=== PATIENT | female | born 1990 | race Caucasian/White ===

== ENCOUNTER 2016-07-07 15:59 | Emergency (ER) | payer MEDICAID ==
[~2016-07-07] VITALS: Ht 154.9 cm; Wt 55.3 kg
[2016-07-07 17:48] VITALS: BP 125/79
== END 2016-07-07 17:48 | disposition home or self-care (01) ==
LOC: ED 15:59
DX: K29.00 Acute gastritis without bleeding (principal)
CPT/HCPCS: Q0162

== ENCOUNTER 2016-07-17 21:47 | Inpatient (IN) | payer MEDICAID ==
[~2016-07-17] VITALS: Ht 157.5 cm; Wt 57.3 kg
[2016-07-17 23:46] LABS: BASOPHIL % 0.1 % (0-2); PLATELET COUNT 298 x10^3mcL (130-400); RED CELL DISTRIBUTION WIDTH 12.1 % (11.5-14.5)
[2016-07-17 23:56] LABS: CALCIUM 8.8 mg/dL (8.5-10.1); CARBON DIOXIDE 27.4 mmol/L (21-32); CHLORIDE SERUM 103 mmol/L (98-107); CREATININE SERUM 0.9 mg/dL (0.6-1.0); GFR1 > 60 mL/min; GLUCOSE SERUM 140 mg/dL (74-106); POTASSIUM SERUM 3.9 mmol/L (3.5-5.1); SODIUM SERUM 140 mmol/L (136-145)
[2016-07-18] VITALS (7 sets, daily range): BP systolic 83–91; BP diastolic 49–59
[2016-07-18] LABS: ALKALINE PHOSPHATASE 72 U/L (46-116); ALT/SGPT 25 U/L (14-59); AST/SGOT 15 U/L (15-37); BILIRUBIN TOTAL 0.3 mg/dL (0.20-1.00); LIPASE 146 IU/L (73-393); TOTAL PROTEIN, SERUM 7.8 g/dL (6.4-8.2)
[2016-07-18 03:21] LABS: T3 TOTAL 0.92 ng/mL
[2016-07-18 03:50] LABS: CHOLESTEROL/HDL RATIO 2.9
[2016-07-18 03:52] LABS: FREE T4 1.15 ng/dL (0.76-1.46); FREE THYROXINE INDEX 2.8 ug/dL (1.4-4.5); T4(THYROXINE) 8.1 ug/dL (4.7-13.3)
[2016-07-18 04:27] LABS: UA SPECIFIC GRAVITY >=1.030 (1.005-1.035); microscopic required? YES; urine erythrocyte NEGATIVE (NEGATIVE)
[2016-07-18 04:39] LABS: AMPHETAMINE QUAL UR NONE DETECTED (NEG <=1000)
[2016-07-18 07:27] LABS: CALCIUM 7.8 mg/dL (8.5-10.1); CARBON DIOXIDE 28.8 mmol/L (21-32); CHLORIDE SERUM 107 mmol/L (98-107); CREATININE SERUM 0.6 mg/dL (0.6-1.0); GFR1 > 60 mL/min; GLUCOSE SERUM 107 mg/dL (74-106); PHOSPHOROUS 3.7 mg/dL (2.5-4.9); POTASSIUM SERUM 3.9 mmol/L (3.5-5.1); SODIUM SERUM 140 mmol/L (136-145)
[2016-07-18 12:52] LABS: BASOPHIL % 0.4 % (0-2); PLATELET COUNT 231 x10^3mcL (130-400); RED CELL DISTRIBUTION WIDTH 12.2 % (11.5-14.5)
[2016-07-18] MEDS ORDERED: ONDANSETRON4 M3 PO (14:33)
[2016-07-19 05:20] VITALS: BP 88/47
[2016-07-19 06:51] LABS: BASOPHIL % 0.4 % (0-2); PLATELET COUNT 244 x10^3mcL (130-400); RED CELL DISTRIBUTION WIDTH 12.4 % (11.5-14.5)
[2016-07-19 07:12] LABS: CALCIUM 8.6 mg/dL (8.5-10.1); CHLORIDE SERUM 108 mmol/L (98-107); CREATININE SERUM 0.6 mg/dL (0.6-1.0); GFR1 > 60 mL/min; GLUCOSE SERUM 88 mg/dL (74-106); MAGNESIUM 1.9 mg/dL (1.8-2.4); PHOSPHOROUS 3.1 mg/dL (2.5-4.9); POTASSIUM SERUM 3.8 mmol/L (3.5-5.1); SODIUM SERUM 141 mmol/L (136-145)
[2016-07-19 09:15] VITALS: BP 96/48
[2016-07-19 10:56] VITALS: BP 96/48
== END 2016-07-19 13:12 | disposition home or self-care (01) | DRG 249 ==
LOC: ED 21:47 → MU 07-18 01:56 → DU 07-18 01:56 → MU 07-18 16:05
PROVIDERS: Emergency Medicine; ADMIT Family Medicine
DX: K52.9 Noninfective gastroenteritis and colitis, unspecified (principal); N17.0 Acute kidney failure with tubular necrosis; I95.89 Other hypotension; D64.9 Anemia, unspecified; R65.10 Systemic inflammatory response syndrome (SIRS) of non-infectious origin without acute organ dysfunction; F43.9 Reaction to severe stress, unspecified; Z68.23 Body mass index [BMI] 23.0-23.9, adult
CPT/HCPCS: 80307; 83880; 84439; 94150; J2270; J2405; J2550; J7030; J7040

== ENCOUNTER 2018-04-12 04:39 | Emergency (ER) | payer MEDICAID ==
[~2018-04-12 04:39] MED LIST: ONDANSETRON4 M3 PO
[2018-04-12 04:47] VITALS: Ht 154.9 cm
[2018-04-12 06:30] VITALS: BP 111/70
== END 2018-04-12 06:31 | disposition home or self-care (01) ==
LOC: ED 04:39
DX: J11.1 Influenza due to unidentified influenza virus with other respiratory manifestations (principal)
CPT/HCPCS: 87804; J1885